=== PATIENT | male | born 1995 | race Caucasian/White ===

== ENCOUNTER 2020-04-29 17:22 | Emergency (ER) | payer BC ==
[~2020-04-29] VITALS: Ht 188 cm; Wt 77.1 kg
[~2020-04-29 17:22] MED LIST: ZOFRAN ODT4 MG PO
== END 2020-04-29 18:11 | disposition home or self-care (01) ==
LOC: ED 17:22
DX: U07.1 COVID-19 (principal)
CPT/HCPCS: 99283

== ENCOUNTER 2020-10-30 07:26 | Emergency (ER) | payer BC ==
[~2020-10-30] VITALS: Ht 188 cm; Wt 77.1 kg
[2020-10-30] MEDS ORDERED: BUSPIRONE HCL5 MG PO (07:41)
[2020-10-30] MEDS ORDERED: LORAZEPAM1 MG PO (07:42)
[2020-10-30] MEDS ORDERED: HYDROXYZINE HCL25 MG PO (07:42)
[2020-10-30] MEDS ORDERED: ZOLPIDEM TARTRA10 MG PO (07:42)
[2020-10-30] MEDS ORDERED: PROTONIX40 MG PO (09:06)
--- NOTE | 2020-10-31 05:36 | EKG ---
[facility] [address] [facility] [place] [address] Signed Normal sinus rhythm Normal ECG No previous ECGs available Confirmed by VIVEK BATRES MD ([id number] on 10/31/2020 5:36:05 AM Electronically Signed By: VIVEK BATRES MD 10/31/20 0536 PATIENT NAME: NADYA PEREZ Electrocardiogram DATE OF : [birth year] PHYSICIAN: VIVEK BATRES MD REPORT #: [id number] REPORT IS CONFIDENTIAL AND NOT TO BE RELEASED WITHOUT AUTHORIZATION
== END 2020-10-30 09:19 | disposition home or self-care (01) ==
LOC: ED 07:26
DX: K21.9 Gastro-esophageal reflux disease without esophagitis (principal); G47.00 Insomnia, unspecified; Z79.899 Other long term (current) drug therapy
CPT/HCPCS: 93005; 93010; 99284-25